=== PATIENT | male | born 1985 | race Caucasian/White ===

== ENCOUNTER 2016-09-21 04:17 | Emergency (ER) | payer MEDICARE, MEDICAID ==
[~2016-09-21] VITALS: Ht 172.7 cm; Wt 73.0 kg
[2016-09-21 04:22] VITALS: BP 134/85
== END 2016-09-21 06:38 | disposition left against medical advice (07) ==
LOC: ER 04:18
DX: Z04.8 Encounter for examination and observation for other specified reasons (principal); Z53.21 Procedure and treatment not carried out due to patient leaving prior to being seen by health care provider

== ENCOUNTER 2018-12-26 09:54 | Emergency (ER) | payer MEDICARE, MEDICAID ==
[~2018-12-26] VITALS: Ht 167.6 cm; Wt 55.0 kg
[2018-12-26] MEDS ORDERED: KETOROLAC 30MG/ML VIAL IV ONE (11:30)
[2018-12-26 11:39] LABS: BASOPHILS % 1.2 % (0.0-2.0); EOSINOPHILS % 5.9 % (0.0-5.0); HEMATOCRIT. 43.7 % (42.0-52.0); HEMOGLOBIN. 14.9 g/dL (14.0-18.0); LYMPHOCYTES % 31.9 % (20.0-50.0); MEAN CORPUSCULAR VOLUME 85.3 fL (80.0-94.0); MEAN PLATELET VOLUME 7.6 fl (7.4-10.4); MONOCYTES % 9.6 % (2.0-8.0); NEUTROPHILS % 51.4 % (40.0-76.0); PLATELET 398 x1000/uL (130-400); RED BLOOD CELL COUNT 5.12 mill/uL (4.7-6.1); RED CELL DISTRIBUTION WIDTH 13.8 % (11.6-14.6)
[2018-12-26 11:46] LABS: CHLORIDE 110 mEq/L (98-107)
[2018-12-26 12:43] VITALS: BP 123/77
== END 2018-12-26 12:46 | disposition home or self-care (01) ==
LOC: ER 09:54
DX: R07.89 Other chest pain (principal); F17.210 Nicotine dependence, cigarettes, uncomplicated; F15.10 Other stimulant abuse, uncomplicated; Z87.828 Personal history of other (healed) physical injury and trauma; Z93.8 Other artificial opening status
CPT/HCPCS: 36415; 71045; 80053; 84484; 85025; 93005; 96374; 99284; J1885

== ENCOUNTER 2022-01-15 20:54 | Inpatient (IN) | payer MEDICARE, MEDICAID ==
[~2022-01-15] VITALS: Ht 172.7 cm; Wt 80.3 kg
[2022-01-15] MEDS ORDERED: LORAZEPAM 2MG/ML CPJ IV ONE (21:15)
[2022-01-15 21:25] LABS: HEMATOCRIT. 50.3 % (42.0-52.0); MEAN CORPUSCULAR HEMOGLOBIN 28.5 pg (28.0-32.0); MEAN CORPUSCULAR VOLUME 89.4 fL (80.0-94.0); MEAN PLATELET VOLUME 8.2 fl (7.4-10.4); PLATELET 479 x1000/uL (130-400); RED BLOOD CELL COUNT 5.62 mill/uL (4.7-6.1); RED CELL DISTRIBUTION WIDTH 13.7 % (11.6-14.6)
[2022-01-15 21:32] LABS: CHLORIDE 101 mEq/L (98-107)
[2022-01-15 21:41] LABS: ETHANOL BLOOD < 10 mg/dL
[2022-01-15 21:42] LABS: PLATELET ESTIMATE INCREASED
[2022-01-15] MEDS ORDERED: SODIUM CHLORIDE 0.9% 1000ML BAG (SEPSIS BOLUS) IV ONE (21:45)
[2022-01-15] MEDS ORDERED: PIPERACILLIN/TAZ 3.375G PREMIX 50 ML IV ONE (21:45)
[2022-01-15] MEDS ORDERED: SODIUM BICARBONATE 8.4% 1 MEQ/ML 50ML SYR IV NR (21:50)
[2022-01-15 22:08] LABS: BG BASE EXCESS -10.2 mmol/L (-2.0-2.0); BG CARBOXYHEMOGLOBIN 0.5 % (0.5-1.5); BG DEOXYHEMOGLOBIN 7.5 % (0.0-5.0); BG FRACTION INSPIRED OXYGEN 32; BG HCO3 ACT 13.4 mmol/L (22.0-26.0); BG METHEMOGLOBIN 0.3 % (0.0-1.5); BG OXYGEN SATURATION 92.4 % (92.0-98.5); BG OXYHEMOGLOBIN 91.7 % (94.0-97.0); BG PCO2 24.9 mmHg (35.0-45.0); BG PH 7.348 (7.350-7.450); BG PO2 72.4 mmHg (75.0-100.0); BG SAMPLE SITE RIGHT RADIAL; BG TOTAL HEMOGLOBIN 14.9 g/dL (12.0-18.0); BG VENT MODE NASAL CANNULA
[2022-01-15 22:18] LABS: CLARITY URINE CLEAR (CLEAR); COLOR URINE YELLOW (YELLOW); KETONES URINE TRACE (NEGATIVE); LEUKOCYTE ESTERASE URINE NEGATIVE (NEGATIVE); NITRITE URINE NEGATIVE (NEGATIVE); OCCULT BLOOD URINE NEGATIVE (NEGATIVE); PH URINE 5.5 (4.5-8.0); PROTEIN URINE 3+ (NEGATIVE); SPECIFIC GRAVITY URINE 1.013 (1.005-1.030)
[2022-01-15 22:44] LABS: *AMPHETAMINES SCREEN URINE NEGATIVE (NEGATIVE); *BARBITURATES SCREEN URINE NEGATIVE (NEGATIVE); *BENZODIAZEPINES SCREEN URINE NEGATIVE (NEGATIVE); *COCAINE SCREEN URINE NEGATIVE (NEGATIVE); CANNABINOID URINE SCREEN NEGATIVE (NEGATIVE); METHADONE URINE SCREEN NEGATIVE (NEGATIVE); OPIATES URINE SCREEN NEGATIVE (NEGATIVE); PHENCYCLIDINE URINE SCREEN NEGATIVE (NEGATIVE)
[2022-01-15] MEDS ORDERED: KETOROLAC 15MG/ML VIAL IV PRN (22:45)
[2022-01-15] MEDS ORDERED: DOCUSATE SODIUM 100MG CAPSULE PO PRN (22:45)
[2022-01-15] MEDS ORDERED: CLONIDINE 0.1MG TABLET PO PRN (22:45)
[2022-01-15] MEDS ORDERED: IPRATROPIUM/ALBUTEROL 0.5-3(2.5)MG/3ML NEB NEB PRN (22:45)
[2022-01-15] MEDS ORDERED: ACETAMINOPHEN 325MG TABLET PO PRN ×2 (22:45)
[2022-01-15] MEDS ORDERED: ONDANSETRON HCL 4MG/2ML INJ IV PRN (22:45)
[2022-01-15] MEDS ORDERED: GUAIFENESIN 200MG/10ML SUGAR FREE UDC PO PRN (22:45)
[2022-01-15] MEDS ORDERED: MAGNESIUM/ALUMINUM HYDROXIDE/SIMETHICONE 30ML UDC PO PRN (22:45)
[2022-01-15] MEDS ORDERED: NA PHOS,M-B/NA PHOS,DI-BA ENEMA 118ML PR PRN (22:45)
[2022-01-15] MEDS ORDERED: NITROGLYCERIN 0.4MG TABLET SL SL PRN (22:45)
[2022-01-15] MEDS ORDERED: IOHEXOL-350 100 ML BOTTLE ONE (22:50)
[2022-01-15] MEDS ORDERED: VANCOMYCIN 1.25GM PMX (XELLIA) 250 ML IV NR (23:00)
[2022-01-15] MEDS: ENOXAPARIN 40MG/0.4ML SYR SUBCUT SCH (23:30)
[2022-01-15 23:41] LABS: T4 FREE 0.84 ng/dL (0.76-1.46)
[2022-01-15] MEDS: SODIUM CHLORIDE 0.9% 1,000 ML IV SCH (23:45)
[2022-01-15 23:56] LABS: FOLIC ACID (FOLATE) SERUM > 20.00 ng/mL (>5.38)
[2022-01-16] MEDS ORDERED: VANCOMYCIN 1.25GM PMX (XELLIA) 250 ML IV NR
[2022-01-16] MEDS: DILTIAZEM HCL 60MG TABLET PO SCH ×4 (00:12→18:05)
[2022-01-16 04:57] LABS: HEMATOCRIT. 41.8 % (42.0-52.0); HEMOGLOBIN. 14.1 g/dL (14.0-18.0); MEAN CORPUSCULAR HEMOGLOBIN 28.5 pg (28.0-32.0); MEAN CORPUSCULAR VOLUME 84.5 fL (80.0-94.0); MEAN PLATELET VOLUME 7.5 fl (7.4-10.4); PLATELET 324 x1000/uL (130-400); RED BLOOD CELL COUNT 4.94 mill/uL (4.7-6.1); RED CELL DISTRIBUTION WIDTH 13.6 % (11.6-14.6)
[2022-01-16 05:05] LABS: CHLORIDE 111 mEq/L (98-107)
[2022-01-16 05:14] LABS: PHOSPHORUS 2.8 mg/dL (2.5-4.9)
[2022-01-16 05:28] LABS: CREATINE KINASE MB FRACTION 14.9 ng/mL (0.5-3.6)
[2022-01-16] MEDS ORDERED: PIPERACILLIN/TAZ 3.375G PREMIX 50 ML IV SCH (06:00)
[2022-01-16 09:17] LABS: PLATELET ESTIMATE NORMAL
[2022-01-16] MEDS ORDERED: VANCOMYCIN 750MG PREMIX 150 ML IV SCH ×2 (11:00→13:00)
[2022-01-16] MEDS ORDERED: DIVA500T3 PO (11:27)
[2022-01-16] MEDS ORDERED: ATOR10TA69 PO (11:27)
[2022-01-16] MEDS ORDERED: BENZ1TAB7 PO (11:27)
[2022-01-16] MEDS ORDERED: TEMA30CA PO (11:27)
[2022-01-16] MEDS ORDERED: B50 MT (11:27)
[2022-01-16] MEDS ORDERED: FAMO-135 PO (11:27)
[2022-01-16] MEDS ORDERED: LORA2TAB95 PO (11:27)
[2022-01-16] MEDS ORDERED: LEVO5TAB13 PO (11:27)
[2022-01-16] MEDS ORDERED: OLAN10TA72 PO (11:27)
[2022-01-16 12:00] VITALS: BP 127/71
[2022-01-16] MEDS: VANCOMYCIN 750MG PREMIX 150 ML IV SCH ×2 (12:39→21:21)
[2022-01-16] MEDS: CHOLECALCIFEROL (D3) 1000 UNIT TABLET PO SCH (12:39)
[2022-01-16] MEDS: SODIUM CHLORIDE 0.9% 1,000 ML IV SCH ×2 (12:41→18:05)
[2022-01-16] MEDS: ASCORBIC ACID 500 MG TABLET PO SCH ×2 (12:41→21:21)
[2022-01-16] MEDS: ZINC SULFATE 220 MG ( 50 ) CAPSULE PO SCH (12:41)
[2022-01-16] MEDS: FAMOTIDINE 20MG TABLET PO SCH ×2 (12:45→21:21)
[2022-01-16] MEDS: PIPERACILLIN/TAZOBACTAM 3.375G in DEXT 5% WATER 50ML IV SCH ×2 (13:13→21:21)
[2022-01-16 16:00] VITALS: BP 124/78
[2022-01-16 16:07] LABS: CREATINE KINASE MB FRACTION 12.1 ng/mL (0.5-3.6)
[2022-01-16 16:24] VITALS: BP 120/74
[2022-01-16 20:00] VITALS: BP 132/76
[2022-01-16] MEDS: ZOLPIDEM TARTRATE 5MG TABLET PO PRN (22:27)
[2022-01-16] MEDS: ENOXAPARIN 40MG/0.4ML SYR SUBCUT SCH (22:27)
[2022-01-17] VITALS: BP 123/79
[2022-01-17] MEDS: DILTIAZEM HCL 60MG TABLET PO SCH ×6 (01:07→23:20)
[2022-01-17 04:00] VITALS: BP 119/79
[2022-01-17] MEDS: SODIUM CHLORIDE 0.9% 1,000 ML IV SCH ×2 (04:04→14:06)
[2022-01-17] MEDS: PIPERACILLIN/TAZOBACTAM 3.375G in DEXT 5% WATER 50ML IV SCH ×3 (05:41→23:19)
[2022-01-17 08:00] VITALS: BP 127/85
[2022-01-17 08:45] LABS: CHLORIDE 109 mEq/L (98-107)
[2022-01-17] MEDS: VANCOMYCIN 750MG PREMIX 150 ML IV SCH (08:56)
[2022-01-17] MEDS: CHOLECALCIFEROL (D3) 1000 UNIT TABLET PO SCH (08:57)
[2022-01-17] MEDS: FAMOTIDINE 20MG TABLET PO SCH ×2 (08:57→21:46)
[2022-01-17] MEDS: ZINC SULFATE 220 MG ( 50 ) CAPSULE PO SCH (08:57)
[2022-01-17] MEDS: ASCORBIC ACID 500 MG TABLET PO SCH ×2 (08:57→21:45)
[2022-01-17 12:00] VITALS: BP 141/74
[2022-01-17] MEDS: VANCOMYCIN 1.25GM PMX (XELLIA) 250 ML IV SCH ×2 (14:46→21:46)
[2022-01-17 16:00] VITALS: BP 117/80
[2022-01-17 20:00] VITALS: BP 140/90
[2022-01-17] MEDS: ZOLPIDEM TARTRATE 5MG TABLET PO PRN (23:19)
[2022-01-17] MEDS: ENOXAPARIN 40MG/0.4ML SYR SUBCUT SCH (23:19)
[2022-01-18] VITALS: BP 127/84
[2022-01-18] MEDS: SODIUM CHLORIDE 0.9% 1,000 ML IV SCH ×3 (00:31→20:44)
[2022-01-18 03:15] LABS: CHLORIDE 109 mEq/L (98-107)
[2022-01-18 04:00] VITALS: BP 118/83
[2022-01-18] MEDS: VANCOMYCIN 1.25GM PMX (XELLIA) 250 ML IV SCH (05:36)
[2022-01-18] MEDS: DILTIAZEM HCL 60MG TABLET PO SCH ×4 (05:51→22:56)
[2022-01-18] MEDS: PIPERACILLIN/TAZOBACTAM 3.375G in DEXT 5% WATER 50ML IV SCH ×3 (06:00→22:52)
[2022-01-18 08:00] VITALS: BP 117/81
[2022-01-18] MEDS: CHOLECALCIFEROL (D3) 1000 UNIT TABLET PO SCH (08:24)
[2022-01-18] MEDS: ZINC SULFATE 220 MG ( 50 ) CAPSULE PO SCH (08:24)
[2022-01-18] MEDS: ASCORBIC ACID 500 MG TABLET PO SCH ×2 (08:24→20:44)
[2022-01-18] MEDS: FAMOTIDINE 20MG TABLET PO SCH ×2 (08:24→20:44)
[2022-01-18 11:55] VITALS: BP 121/74
[2022-01-18] MEDS: VANCOMYCIN 1GM PMX (XELLIA) 200 ML IV SCH ×2 (13:11→20:44)
[2022-01-18 16:00] VITALS: BP 126/86
[2022-01-18 20:00] VITALS: BP 133/78
[2022-01-18] MEDS: ENOXAPARIN 40MG/0.4ML SYR SUBCUT SCH (22:52)
[2022-01-18] MEDS: ZOLPIDEM TARTRATE 5MG TABLET PO PRN (22:52)
[2022-01-19] VITALS: BP 120/86
[2022-01-19 03:17] LABS: BASOPHILS % 1.1 % (0.0-2.0); EOSINOPHILS % 2.6 % (0.0-5.0); HEMATOCRIT. 44.3 % (42.0-52.0); HEMOGLOBIN. 15.1 g/dL (14.0-18.0); LYMPHOCYTES % 34.1 % (20.0-50.0); MEAN CORPUSCULAR HEMOGLOBIN 28.9 pg (28.0-32.0); MEAN PLATELET VOLUME 7.6 fl (7.4-10.4); NEUTROPHILS % 51.2 % (40.0-76.0); PLATELET 300 x1000/uL (130-400); RED BLOOD CELL COUNT 5.21 mill/uL (4.7-6.1); RED CELL DISTRIBUTION WIDTH 13.9 % (11.6-14.6)
[2022-01-19 03:24] LABS: CHLORIDE 108 mEq/L (98-107)
[2022-01-19 04:00] VITALS: BP 112/75
[2022-01-19] MEDS: VANCOMYCIN 1GM PMX (XELLIA) 200 ML IV SCH (04:08)
[2022-01-19] MEDS: PIPERACILLIN/TAZOBACTAM 3.375G in DEXT 5% WATER 50ML IV SCH (05:43)
[2022-01-19] MEDS: DILTIAZEM HCL 60MG TABLET PO SCH ×2 (05:43→13:07)
[2022-01-19] MEDS: SODIUM CHLORIDE 0.9% 1,000 ML IV SCH (05:58)
[2022-01-19 08:00] VITALS: BP 137/92
[2022-01-19] MEDS: ZINC SULFATE 220 MG ( 50 ) CAPSULE PO SCH (09:36)
[2022-01-19] MEDS: ASCORBIC ACID 500 MG TABLET PO SCH (09:36)
[2022-01-19] MEDS: FAMOTIDINE 20MG TABLET PO SCH (09:36)
[2022-01-19] MEDS: CHOLECALCIFEROL (D3) 1000 UNIT TABLET PO SCH (09:36)
[2022-01-19 12:00] VITALS: BP 160/85
[2022-01-19 12:07] VITALS: BP 160/85
[2022-01-21 21:25] LABS: VITAMIN B12 SERUM 570 pg/mL (211-911)
== END 2022-01-19 13:15 | disposition home or self-care (01) | DRG 871 ==
LOC: ER 20:54 → MICUSO 22:40 → 7EST 01-16 10:05
PROVIDERS: ADMIT Internal Medicine; ATTEND Internal Medicine
DX: A41.9 Sepsis, unspecified organism (principal); G92.8 Other toxic encephalopathy; N17.0 Acute kidney failure with tubular necrosis; E87.2 Acidosis; Z20.822 Contact with and (suspected) exposure to COVID-19; E88.09 Other disorders of plasma-protein metabolism, not elsewhere classified; R65.20 Severe sepsis without septic shock; F15.10 Other stimulant abuse, uncomplicated; F10.21 Alcohol dependence, in remission; F90.9 Attention-deficit hyperactivity disorder, unspecified type
CPT/HCPCS: 36415; 36600; 71045; 71275; 80048; 80053; 80202; 80305; 80320; 81003; 82010; 82375; 82550; 82553; 82607; 82746; 82805; 83036; 83540; 83550; 83605; 83735; 83880; 83930; 84100; 84439; 84443; 84484; 85025; 85379; 87426; 93005; 93306; 93970; 97161; 97165; 99291; J1650; J2060; J2543; J3370; J7030; J7060; Q9967; G0480